=== PATIENT | female | born 1995 | race African-American/Black ===

== ENCOUNTER 2017-06-02 23:56 | Emergency (ER) | payer MEDICAID ==
[~2017-06-02] VITALS: Ht 165.1 cm; Wt 86.2 kg
[~2017-06-02 23:56] MED LIST: BACTROBAN 2% OI15 GM TOPIC; BENADRYL CRE1 APPLIC TOPIC; BENADRYL25 MG ORAL; CLINDAMYCIN HC150 MG ORAL; NKM; VIGAMOX1 DROP LEFT EYE
[2017-06-03 00:06] VITALS: BP 121/70
[2017-06-03] MEDS ORDERED: AUGMENTIN 875-1 EAC1 ORAL (00:20)
[2017-06-03] MEDS ORDERED: PSEUDOEPHEDRINE60 MG PO (00:20)
--- NOTE | 2017-06-03 00:21 | Emergency Room Report ---
History of Present Illness General Chief Complaint: Earache Source: Patient Present Illness HPI Is a 22-year-old female with no past medical history. She presents with chief complaint of right ear pain. She has been having runny nose congestion the last few days. Pain started yesterday. Pain is 5/10. Better with ibuprofen. No other complaint. No drainage. Allergies: Coded Allergies: No Known Allergies (Unverified , 01/08/13) Patient History Past Medical History: see triage record, old chart reviewed Past Surgical History: none Pertinent Family History: none Social History: Denies: smoking Last Menstrual Period: 05/03/17 Now: No : 2 Para: 0 Immunizations: other Reviewed Nursing Documentation: PMH: Agreed, PSxH: Agreed Nursing Documentation-PMH Past Medical History: No Stated History Review of Systems Eye: Denies: eye pain, blurred vision ENT: Reports: ear pain, Denies: nose congestion, throat swelling Respiratory: Denies: cough, shortness of breath Cardiovascular: Denies: chest pain, palpitations Gastrointestinal: Denies: abdominal pain, diarrhea, nausea, vomiting Musculoskeletal: Denies: back pain, joint pain Skin: Denies: rash Neurological: Denies: headache, numbness Endocrine: Denies: increased thirst, increased urine Hematologic/Lymphatic: Denies: easy bruising All Other Systems: negative except mentioned in HPI Physical Exam Vital Signs Date Time Temp Pulse Resp B/P (MAP) Pulse Ox O2 Delivery O2 Flow Rate FiO2 06/03/17 00:03 98.8 78 14 121/70 98 Room Air vitals normal Sp02 EP Interpretation: reviewed, normal General Appearance: well appearing, no apparent distress, alert Head: normocephalic, atraumatic Eyes: bilateral eye PERRL, bilateral eye EOMI ENT: hearing grossly normal, normal pharynx, other - Right TM is erythematous. Neck: full range of motion, supple, no meningismus Respiratory: chest non-tender, lungs clear, normal breath sounds Cardiovascular #1: regular rate, rhythm, no murmur Gastrointestinal: normal bowel sounds, non tender, no mass, no organomegaly, no bruit, non-distended Musculoskeletal: back normal, gait/station normal, normal range of motion Psychiatric: mood/affect normal Skin: warm/dry Medical Decision Making Diagnostic Impression: Primary Impression: Right acute otitis media ER Course This patient has a viral illness competent by otitis media. No evidence of perforation. No evidence of mastoiditis or other serious bacterial infection. We'll discharge home. Last Vital Signs Date Time Temp Pulse Resp B/P (MAP) Pulse Ox O2 Delivery O2 Flow Rate FiO2 06/03/17 00:06 98.8 68 14 121/70 98 Room Air Status: improved Disposition: HOME, SELF-CARE Condition: Stable Scripts Pseudoephedrine Hcl* (SUDAFED*) 60 Mg Tablet 60 MG PO Q6H, #20 TAB Prov: MAXINE LORD M.D. 06/03/17 Amoxicillin/Potassium Clav 875-125* (AUGMENTIN 875-125 TABLET*) 1 Each Tablet 1 TAB ORAL TWICE A DAY, #14 TAB Prov: MAIXNE LORD M.D. 06/03/17 Patient Instructions: Otitis Media, Adult, [id number] Additional Instructions: Followup with your Dr. in 7 days if not better. Return if symptom worsen. MAXINE LORD M.D. Jun 03, 2017 00:21
== END 2017-06-03 00:25 | disposition home or self-care (01) ==
LOC: EMR 23:59
DX: H66.91 Otitis media, unspecified, right ear (principal)
CPT/HCPCS: 99283

== ENCOUNTER 2017-10-11 01:57 | Emergency (ER) | payer MEDICAID ==
[~2017-10-11] VITALS: Ht 165.1 cm; Wt 81.6 kg
[~2017-10-11 01:57] MED LIST changes: +AUGMENTIN 875-1 EAC1 ORAL; +PSEUDOEPHEDRINE60 MG PO
[2017-10-11 02:05] VITALS: BP 115/78
--- NOTE | 2017-10-11 02:35 | Emergency Room Report ---
History of Present Illness General Chief Complaint: Foreign Body Source: Patient Present Illness HPI Patient presents with concerns of possible vaginal foreign body Retained tampon Patient reports that this was placed earlier this morning Later this evening she has been unable to retrieve the tampon was concerned about it being retained Patient started her menstrual cycle 2 days ago Denies any abdominal pain denies any pelvic pain Patient reports that she had checked on her boyfriend had checked as well but they were unable to locate the tampon Allergies: Coded Allergies: No Known Allergies (Unverified , 01/08/13) Patient History Past Medical History: see triage record Pertinent Family History: none Last Menstrual Period: 10/09/17 Now: No Reviewed Nursing Documentation: PMH: Agreed; PSxH: Agreed Nursing Documentation-PMH Past Medical History: No History, Except For Hx Neurological Problems: Yes - Scoliosis Review of Systems All Other Systems: negative except mentioned in HPI Physical Exam Vital Signs Date Time Temp Pulse Resp B/P (MAP) Pulse Ox O2 Delivery O2 Flow Rate FiO2 10/11/17 02:01 98.3 83 16 115/78 99 Room Air 98.2 Sp02 EP Interpretation: reviewed, normal General Appearance: well appearing, no apparent distress Head: normocephalic, atraumatic Eyes: bilateral eye PERRL, bilateral eye EOMI ENT: hearing grossly normal, normal pharynx, TMs + canals normal, uvula midline Neck: full range of motion, supple, no meningismus, no bony tend Respiratory: lungs clear, normal breath sounds, no rhonchi, no respiratory distress, no retraction, no accessory muscle use Cardiovascular #1: normal peripheral pulses, regular rate, rhythm, no edema, no gallop, no JVD, no murmur Gastrointestinal: normal bowel sounds, non tender, soft, no mass, no organomegaly, non-distended, no guarding, no hernia, no pulsatile mass, no rebound Genitourinary: other - Full visualization of the vaginal vault and canal was made, the cervix was also visualized O obvious foreign body cul-de-sac was visualized as best as possible, patient also had manual digital exam and sweep around the cul-de-sac without any evidence of foreign body Neurologic: oriented x3, responsive, soda fountain operator III-XII nml as tested, motor strength/ tone normal, sensory intact Psychiatric: mood/affect normal Skin: normal color, no rash, warm/dry, palpation normal Lymphatic: normal inspection, no adenopathy Medical Decision Making Diagnostic Impression: Primary Impression: well check Additional Impression: vaginal FB, not seen ER Course At this time given the thorough evaluation I was not able to visualize a foreign body Potential passage Versus retained foreign body that is not visualized R possible patient is stable for close follow-up and will return with any changes Last Vital Signs Date Time Temp Pulse Resp B/P (MAP) Pulse Ox O2 Delivery O2 Flow Rate FiO2 10/11/17 02:05 98.2 83 16 115/78 99 Room Air 98.2 Status: improved Disposition: HOME, SELF-CARE Condition: Stable Patient Instructions: Pelvic Exam, Vaginal Foreign Body, [id number] Additional Instructions: Patient is provided with the discharge instructions notified to follow up with primary doctor in the next 2-3 days otherwise return to the er with any worsening symptoms. Please note that this report is being documented using DRAGON technology. This can lead to erroneous entry secondary to incorrect interpretation by the dictating instrument. Marc Black DO Oct 11, 2017 02:35
[2017-10-11 02:40] VITALS: BP 0/0
== END 2017-10-11 02:40 | disposition home or self-care (01) ==
LOC: EMR 02:10
DX: Z03.89 Encounter for observation for other suspected diseases and conditions ruled out (principal)
CPT/HCPCS: 99283

== ENCOUNTER 2018-06-22 11:46 | Emergency (ER) | payer MEDICAID ==
[~2018-06-22] VITALS: Ht 165.1 cm; Wt 80.3 kg
[2018-06-22 11:58] VITALS: BP 135/80
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
[2018-06-22] MEDS ORDERED: Methocarbamol 500mg tab ORAL ONE (12:15)
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
[2018-06-22] MEDS ORDERED: ROBAXIN500 MG PO (13:02)
[2018-06-22] MEDS ORDERED: LIDOCAINE700 M1 TP (13:02)
[2018-06-22] MEDS ORDERED: IBUPROFEN600 MG ORAL (13:02)
[2018-06-22 13:17] VITALS: BP 130/77
--- NOTE | 2018-06-22 13:19 | NUR ---
ED Nurse Note: Pt cleared by Health Care Provider for discharge. DC instructions/prescriptions given and explained to pt and verbalized understanding of teachings. All medical devices such as ID band removed. Pt AAO x4, ambulatory and left with all personal belongings.
--- NOTE | 2018-06-22 14:02 | Diagnostic Imaging Report ---
Indication: Left shoulder pain Technique: 3 views of the left shoulder Comparison: none Findings: No acute fractures. No dislocations. The joint spaces are preserved. Impression: Negative
== END 2018-06-22 13:17 | disposition home or self-care (01) ==
LOC: EMR 12:15
DX: S40.012A Contusion of left shoulder, initial encounter (principal); V43.52XA Car driver injured in collision with other type car in traffic accident, initial encounter; Y92.410 Unspecified street and highway as the place of occurrence of the external cause; M41.9 Scoliosis, unspecified
CPT/HCPCS: 99283

== ENCOUNTER 2019-12-04 19:54 | Emergency (ER) | payer MEDICAID ==
[~2019-12-04] VITALS: Ht 170.2 cm; Wt 63.5 kg
[~2019-12-04 19:54] MED LIST changes: +IBUPROFEN600 MG ORAL; +LIDOCAINE700 M1 TP; +ROBAXIN500 MG PO
--- NOTE | 2019-12-04 20:29 | Emergency Room Report ---
History of Present Illness General Chief Complaint: Upper Respiratory Illness Source: Patient Present Illness HPI 24-year-old female with no significant past medical history here complaining 1 day of fever, rapid heartbeat, shortness of breath and cough as well as loss of taste and smell. Denies any sore throat, abdominal pain, diarrhea. Has taken Tylenol for symptom relief. Denies coming contact with a cold with positive person. Denies recent travel. Oxygen is 94% and temperature is 103 F. Patient is slightly tachycardic due to temperature. Sitting comfortably and speaking full sentences. No muscle retraction noted. Last menstrual period started yesterday. Denies . Allergies: Coded Allergies: No Known Allergies (Unverified , 01/08/13) COVID-19 Screening Contact w/high risk pt: No Experienced COVID-19 symptoms?: Yes COVID-19 Testing performed MANAGING JEWELER: No Patient History Past Medical History: see triage record Past Surgical History: none Pertinent Family History: none Now: No Immunizations: UTD Reviewed Nursing Documentation: PMH: Agreed; PSxH: Agreed Nursing Documentation-PMH Hx Neurological Problems: Yes - SCOLIOSIS Review of Systems All Other Systems: negative except mentioned in HPI Physical Exam Vital Signs Date Time Temp Pulse Resp B/P (MAP) Pulse Ox O2 Delivery O2 Flow Rate FiO2 12/04/19 19:57 103.1 105 18 114/70 (85) 94 Room Air Sp02 EP Interpretation: reviewed, abnormal - Temperature 103 F, O2 sat 94% General Appearance: normal inspection, well appearing Head: normocephalic, atraumatic ENT: hearing grossly normal, normal pharynx, no angioedema, normal voice Neck: full range of motion, supple/symm/no masses Respiratory: chest non-tender, lungs clear, normal breath sounds, no rhonchi, speaking full sentences Cardiovascular #1: regular rate, rhythm, no edema, no murmur Gastrointestinal: normal bowel sounds, non tender, soft, non-distended, no guarding, no rebound Rectal: deferred Genitourinary: no CVA tenderness Musculoskeletal: back normal Neurologic: alert, motor strength/tone normal, oriented x3, sensory intact, responsive, speech normal Psychiatric: judgement/insight normal, memory normal, mood/affect normal, no suicidal/homicidal ideation Skin: no rash Lymphatic: no adenopathy Medical Decision Making PA Attestation Diagnosis and treatment plans were reviewed and discussed with my supervising physician Dr. Stein Diagnostic Impression: Primary Impression: Suspected 2019 novel coronavirus infection Additional Impression: URI (upper respiratory infection) ER Course 24-year-old female with no significant past medical history here complaining 1 day of fever, rapid heartbeat, shortness of breath and cough as well as loss of taste and smell. Denies any sore throat, abdominal pain, diarrhea. Has taken Tylenol for symptom relief. Denies coming contact with a cold with positive person. Denies recent travel. Oxygen is 94% and temperature is 103 F. Patient is slightly tachycardic due to temperature. Sitting comfortably and speaking full sentences. No muscle retraction noted. Last menstrual period started yesterday. Denies . Ddx considered but are not limited to: strep pharyngitis, URI, tonsillitis, peritonsillar abscess, influneza, bronchitis, coronavirus Vital signs: are WNL, pt. is afebrile H&PE are most consistent with: Suspected coronavirus, urine ORDERS: Chest x-ray, Tylenol, prednisone, albuterol ED INTERVENTIONS: Tylenol DISCHARGE: At this time pt. is stable for d/c to home. Will provide printed patient care instructions, and any necessary prescriptions. Care plan and follow up instructions have been discussed with the patient prior to discharge. Advised patient to stay home for the next 2 weeks, get tested for covid at [address], if worsening symptoms return to emergency room. Also advised patient to stay in the prone position when sleeping, take Tylenol for temperature. Tachycardia secondary to elevated temperature. At this time patient is stable to be discharged with medications staying home. Chest X-Ray Diagnostic Results Chest X-Ray Diagnostic Results : Chest X-Ray Ordered: Yes # of Views/Limited/Complete: 1 View Indication: Shortness of Breath EP Interpretation: Yes PA Xray: Interpretation reviewed, by supervising MD, and agrees with findings. Interpretation: no consolidation, no effusion, no pneumothorax Impression: No acute disease Electronically Signed by: Garth Haines PA-C Last Vital Signs Date Time Temp Pulse Resp B/P (MAP) Pulse Ox O2 Delivery O2 Flow Rate FiO2 12/04/19 19:57 103.1 105 18 114/70 (85) 94 Room Air Disposition: HOME, SELF-CARE Condition: Stable Scripts Acetaminophen* (ACETAMINOPHEN 325MG TABLET*) 325 Mg Tablet 650 MG ORAL Q6H PRN for For Pain, #30 TAB Prov: Garth Hernandez 12/04/19 Albuterol Sulfate (VENTOLIN HFA) 18 Gm Hfa.aer.ad 2 PUFFS INH EVERY 6 HOURS, #18 GM 0 Refills Prov: Garth Hernandez 12/04/19 Prednisone* (PREDNISONE*) 20 Mg Tablet 40 MG ORAL DAILY for 5 Days, #10 TAB Prov: Garth Hernandez 12/04/19 Referrals: NON PHYSICIAN (PCP) Patient Instructions: Upper Respiratory Infection, Adult Additional Instructions: Take medication as directed, follow-up with your primary care provider, stay home for the next 2 weeks, if worsening symptoms return to the emergency room. Garth Hernandez Dec 04, 2019 20:29
[2019-12-04] MEDS ORDERED: ACETAMINOPHEN325 M1 ORAL (20:31)
[2019-12-04] MEDS ORDERED: VENTOLIN HFA18 GM INH (20:31)
[2019-12-04] MEDS ORDERED: PREDNISONE20 MG ORAL (20:31)
[2019-12-04 20:35] VITALS: BP 110/68
[2019-12-04 20:45] VITALS: BP 115/70
--- NOTE | 2019-12-05 10:10 | Diagnostic Imaging Report ---
Procedure: XRAY Chest 1v Reason for study: Reason For Exam: COUGH Comparison films: None. FINDINGS: A single one view chest is obtained. Vascularity is normal. The lung montiel are clear bilaterally. Cardiac and mediastinal silhouette are within normal limits. CP angles are sharp. Spine fixation rods noted. IMPRESSION: NO ACUTE CARDIOPULMONARY DISEASE.
== END 2019-12-04 20:45 | disposition home or self-care (01) ==
LOC: EMR 20:06
DX: J06.9 Acute upper respiratory infection, unspecified (principal); M41.9 Scoliosis, unspecified; R50.9 Fever, unspecified
CPT/HCPCS: 71045; Z7502; 99283

== ENCOUNTER 2020-03-04 20:35 | Emergency (ER) | payer MEDICAID ==
[~2020-03-04] VITALS: Ht 165.1 cm; Wt 81.6 kg
[~2020-03-04 20:35] MED LIST changes: +ACETAMINOPHEN325 M1 ORAL; +PREDNISONE20 MG ORAL; +VENTOLIN HFA18 GM INH
--- NOTE | 2020-03-04 20:41 | NUR ---
not in waiting room
--- NOTE | 2020-03-04 20:52 | NUR ---
called for second time; not in waiting room
[2020-03-04 21:05] VITALS: BP 123/66
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
--- NOTE | 2020-03-04 21:25 | NUR ---
ED Nurse Note: pt went for xr
--- NOTE | 2020-03-04 21:35 | NUR ---
ED Nurse Note: pt back from xr
[2020-03-04] MEDS ORDERED: ROBAXIN-750750 MG PO (21:38)
[2020-03-04] MEDS ORDERED: IBUPROFEN600 M1 ORAL (21:38)
[2020-03-04] MEDS ORDERED: LIDOCAINE700 M1 TP (21:38)
--- NOTE | 2020-03-04 21:40 | NUR ---
ER DISCHARGE NOTE: Patient is cleared to be discharged per ERMD, pt is aox4, on room air, with stable vital signs. pt was given dc and prescription instructions, pt was able to verbalize understanding, pt id band removed without complications. pt is able to ambulate with steady gait. pt took all belongings.
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
== END 2020-03-04 21:40 | disposition home or self-care (01) ==
LOC: EMR 21:30
DX: S39.012A Strain of muscle, fascia and tendon of lower back, initial encounter (principal); S80.02XA Contusion of left knee, initial encounter; V43.62XA Car passenger injured in collision with other type car in traffic accident, initial encounter; Y92.410 Unspecified street and highway as the place of occurrence of the external cause; M41.9 Scoliosis, unspecified
CPT/HCPCS: 72020; Z7502; 99283